=== PATIENT | female | born 1975 | race Caucasian/White ===

== ENCOUNTER → 2016-12-17 09:11 | Outpatient (CLI) | payer BC, MEDICAID ==
[2013-04-06 13:07] VITALS: BMI 40.8
[~2016-12-17 09:11] MED LIST: EXFORGE 5-160 M1 TAB PO; EXFORGE 5-320 M1 TAB PO; FLEXERIL10 MG PO; NORCO 10/325 TA1 TA1 PO; VICODIN 5/500 T1 TAB PO
== END | disposition home or self-care (01) ==
LOC: D.RAD 09:11
DX: M54.16 Radiculopathy, lumbar region (principal); M47.816 Spondylosis without myelopathy or radiculopathy, lumbar region

== ENCOUNTER 2017-09-06 09:00 | Outpatient (CLI) | payer BC ==
[2013-04-06 13:07] VITALS: BMI 40.8
== END 2017-09-06 23:59 | disposition home or self-care (01) ==
LOC: D.MAMMO 09:00
DX: Z12.31 Encounter for screening mammogram for malignant neoplasm of breast (principal)

== ENCOUNTER → 2018-02-27 07:30 | Outpatient (CLI) | payer BC ==
[2013-04-06 13:07] VITALS: BMI 40.8
== END | disposition home or self-care (01) ==
LOC: D.MRI 07:30
DX: K76.89 Other specified diseases of liver (principal); R93.8 Abnormal findings on diagnostic imaging of other specified body structures; R10.13 Epigastric pain

== ENCOUNTER → 2018-03-04 15:24 | Outpatient (CLI) | payer BC ==
[2013-04-06 13:07] VITALS: BMI 40.8
== END | disposition home or self-care (01) ==
LOC: D.LAB 15:00
DX: K76.89 Other specified diseases of liver (principal)